=== PATIENT | male | born 2000 | race Caucasian/White ===

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

== ENCOUNTER → 2021-10-26 21:56 | Outpatient (CLI) | payer BC, SELFPAY | PROVIDERS: PCP Internal Medicine Adolescent Medicine; Visit Provider Emergency Medicine | DX: U07.1 COVID-19 (principal) | CPT/HCPCS: C9803; U0003; U0005 ==

== ENCOUNTER 2022-01-27 19:23 | Emergency (ER) | payer BC, SELFPAY ==
--- NOTE | 2022-01-27 19:30 | XR_ITS ---
PROCEDURE INFORMATION: Exam: XR Right Tibia and Fibula Exam date and time: 01/27/2022 7:27 PM Age: 21 years old Clinical indication: Pain; Lower leg; Right; Prior surgery; Surgery date: 6+ months TECHNIQUE: Imaging protocol: XR Right tibia and fibula. Views: 2 views. COMPARISON: CR TIBIART XR tibia fibula RT 2V 06/02/2018 11:01 PM FINDINGS: Bones/joints: Chronic, healed fracture of the proximal fibular diaphysis. There is also a chronic, healed distal fibular fracture with hardware fixation. Thin lucency around the syndesmotic screw, as better seen on ankle series. No acute fracture. No dislocation. Soft tissues: Normal. IMPRESSION: 1. No acute fracture. 2. Chronic, healed fibula fractures, with distal fixation.
--- NOTE | 2022-01-27 19:30 | XR_ITS ---
PROCEDURE INFORMATION: Exam: XR Right Foot Exam date and time: 01/27/2022 7:30 PM Age: 21 years old Clinical indication: Pain; Foot; Right; Prior surgery TECHNIQUE: Imaging protocol: XR Right foot. Views: 3 or more views. COMPARISON: CR XR ANKLE RT MIN 3V 01/27/2022 7:29 PM FINDINGS: Bones/joints: Partially visualized remote distal fibula fracture with hardware fixation. Thin lucency around the trans-syndesmotic screw. Healed posterior malleolus fracture. Chronic/corticated ossific body is seen near the dorsal margin of the metatarsal bases. No acute fracture. No dislocation. Soft tissues: Normal. IMPRESSION: 1. No acute fracture. 2. Chronic fractures with hardware fixation of the distal fibula.
--- NOTE | 2022-01-27 19:30 | XR_ITS ---
PROCEDURE INFORMATION: Exam: XR Right Ankle Exam date and time: 01/27/2022 7:29 PM Age: 21 years old Clinical indication: Pain; Ankle; Right; Prior surgery; Surgery date: 6+ months TECHNIQUE: Imaging protocol: XR Right ankle. Views: 3 or more views. COMPARISON: CR ANKCMRT XR ankle RT min 3V 06/02/2018 10:50 PM FINDINGS: Bones/joints: Chronic, healed distal fibula fracture transfixed by a lateral plate and screws, with trans-syndesmotic screw. There is a thin 1 mm lucency surrounding the syndesmotic screw. There also appears to be slight buckling/undulation of the screw, without subha screw fracture. Irregularity of the posterior malleolus suggesting remote, healed fracture as well. No acute fracture. Ankle mortise is symmetric. No joint space erosion. Soft tissues: Normal. IMPRESSION: 1. No acute fracture. 2. Remote, transfixed distal fibula fracture. Thin lucency around the trans-syndesmotic screw suggesting micromotion.
[2022-01-27 19:56] VITALS: BP 163/88; PULSE 73; RESP 20; TEMP 36.7; O2SAT 98; BMI 27.1
--- NOTE | 2022-01-27 20:28 | HMH.EDUTC ---
[facility] – [place] Disposition Clinical Impression: Right leg pain Right ankle pain Qualifiers: Chronicity: acute Qualified Code(s): M25.571 - Pain in right ankle and joints of right foot Contusion of right ankle Qualifiers: Encounter type: initial encounter Qualified Code(s): S90.01XA - Contusion of right ankle, initial encounter Disposition: Home, Self-Care Condition on Discharge: Good Instructions: Contusion, DI for Contusion, DI for Ankle Pain Additional Instructions: Rest the extremity, Wear the gwen wrap for compression, Elevate the extremity as tolerated while you are resting. Take ibuprofen for pain. I sent in a prescription to your pharmacy. Follow up with your orthopedics. With your history and the presence of the hardware in the ankle it would be advised to follow up with your orthopedic doctor to have everything rechecked. Follow up with your regular doctor. GO TO THE ER FOR ANY WORSENING SYMPTOMS Prescriptions: Ibuprofen [Ibuprofen 800mg Tablet] 800 mg PO Q8HP PRN #30 tab PRN Reason: Moderate Pain Transmission Status: Received by [facility] Referrals: Provider,Referral, [Primary Care Provider] - Forms: Work/School Release Time of Disposition: 20:56 Medical Decision Making - Medical Records Medical records reviewed: No: I reviewed the patient's medical records. - Pasquale Inquiry Pt receiving controlled substance: No Vital Signs: 01/27/22 19:56 01/27/22 21:02 Temperature 98.0 F 98 F Temperature Source Oral Pulse Rate 73 Pulse Rate [Left] 73 Respiratory Rate 20 20 Blood Pressure 163/88 H Blood Pressure [Right Arm] 163/88 H Blood Pressure Mean [Right Arm] 113 02 Sat by Pulse Oximetry 98 [facility] [place] HPI - General Stated complaint: ao02/24 PAIN rIGHT ANKLE Time Seen by Provider: 01/27/22 20:28 Mode of Arrival: Ambulatory Source of Information: Patient Limitations: No Limitations Description of Symptoms (Recalled from Triage Doc. by RN): pt states that he has had a previous football injury and has metal plate and seven screws in his R leg. he states that when he bears weight or rotates his leg it hurts. HEENT Symptoms (Recalled from RN notes): No Resp Symptoms (Recalled from RN notes): No Skin Symptoms (Recalled from RN notes): No MS Symptoms (Recalled from RN notes): Yes Functional Status (Recalled from RN notes): wnl - History of Present Illness Provider Complaint: He bumped his right ankle on his equipment trailer 3 days ago. Since then he has right ankle pain that is worse when he walks or bears weight. At time the pain radiates up to his knee. He has a history of fracturing the fibula on that side 3 years ago. He had to have surgery to place screws and a randa to repair the fracture then. Since then he has had no problems until he bumped his ankle 3 days ago. - Related Data Previous Rx's Medication Instructions Recorded Ibuprofen [Ibuprofen 800mg 800 mg PO Q8HP PRN #30 tab 01/27/22 Tablet] Allergies Allergy/AdvReac Type Severity Reaction Status Date / Time No Known Drug Allergies Allergy Unknown Verified 01/27/22 20:00 [NO KNOWN DRUG ALLERGIES] - Worker's Comp Is this a Worker's Comp case?: No Is this an [employer] Worker's Comp?: No Is this a [place] Worker's Comp?: No [facility] History - Hepatitis A Screen Attestation statement:: This patient has been screened for Hepatitis A risk factors. I have reviewed the patient's past medical history: Yes Other Surgeries: Yes: Other Comment: right ankle-7 screws and plate placed 2017 - Social History Smoking Status: Never smoker Alcohol Intake: never Occupational Status: student Housing: house Household Members: family Family Hx:: Diabetes ROS Obtained: Yes All systems reviewed & no additional complaints - Constitutional Constitutional: Denies chills, Denies fever(s) - Eyes Eyes: Denies eye discharge - ENT Ears, Nose, Mouth, and Throat: Denies dizziness, Denies otalgia, Denies so
[2022-01-27 21:02] VITALS: BP 163/88; PULSE 73; RESP 20; TEMP 36.6
== END 2022-01-27 21:03 | disposition home or self-care (01) ==
PROVIDERS: Emergency Provider Nurse Practitioner Family
DX: M25.571 Pain in right ankle and joints of right foot (principal); S90.01XA Contusion of right ankle, initial encounter; Z79.1 Long term (current) use of non-steroidal anti-inflammatories (NSAID); W22.8XXA Striking against or struck by other objects, initial encounter
CPT/HCPCS: 73590; 73610; 73630; 99213; G0463

== ENCOUNTER 2024-04-06 18:13 | Emergency (ER) | payer MEDICAID, SELFPAY ==
[2024-04-06 18:14] VITALS: BP 167/92; PULSE 83; RESP 18; TEMP 36.6; O2SAT 97; BMI 29.8
[2024-04-06] MEDS: TET/DIPHTH/PERT-ADULT 0.5ML SYRINGE 0.5 ML IM (18:34)
[2024-04-06 18:44] VITALS: BP 169/101; PULSE 90; RESP 16; O2SAT 99
--- NOTE | 2024-04-06 19:14 | HMH.EDGENADL ---
Discharge Plan Disposition Patient Disposition: Home, Self-Care Prescriptions Prescriptions: No Action ibuprofen 800 MG tablet 800 mg PO Q8HP PRN (Reason: Moderate Pain) Qty: 30 0RF Referrals Follow up/Referrals: Provider,Referral, MD [Primary Care Provider] - See instructions Activity Restrictions/Add. Instructions Additional Instructions/Restrictions: Stitches come out in 7 to 10 days. You can go to the emergency department triage area or family doctor to have them removed. Call your family doctor to establish care for this visit to the emergency department and schedule follow-up within 48 hours to ensure improvement. If you have any worsening of your condition or any other concerning signs or symptoms, return to the emergency department or your primary care doctor for further evaluation. Clinical Impressions Clinical Impression: Laceration of thumb Instructions Patient Instructions: DI for Laceration Repair Discharge ED Provider: Fercho Smith General Adult HPI General Chief complaint: Wound/Laceration Stated complaint: AO 04/06, left hand lac Time Seen by Provider: 04/06/24 18:27 Mode of Arrival: Ambulatory Source of Information: Patient Limitations: No Limitations Description of Symptoms (Recalled from ER Triage Doc. 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 Consequentially, this preceding description of symptoms, which may include the patient's categorized chief complaint in the EMR, do not reflect my personal clinical impression, and the ultimate description of history of present illness and patient stated complaints should be deferred to this section of the note. Unless stated otherwise or congruent with this section of the note, additional signs, symptoms, or incongruence should be interpreted as inaccurate with my clinical impression. Related Data Previous Rx's Medication Instructions Recorded ibuprofen 800 mg tablet 800 mg PO Q8HP PRN Moderate Pain 01/27/22 #30 tabs Allergies Allergy/AdvReac Type Severity Reaction Status Date / Time No Known Drug Allergies Allergy Unknown Verified 01/27/22 20:00 [NO KNOWN DRUG ALLERGIES] [facility] Disclaimer: The information contained in this section may have been updated after the patient was seen, as this information can be updated by other users. Social History Smoking Status: Current every day smoker alcohol intake: never current occupational status: student Travel in the last 8 weeks: None household members: family housing: house ROS Obtained: Yes All systems reviewed & no additional complaints except as documented Physical Exam General General appearance: alert and in no apparent distress Head Head exam: atraumatic and normocephalic Eye Eye exam: Present normal appearance, PERRL and EOMI ENT ENT exam: Present mucous membranes moist Neck Neck exam: Present normal inspection, full ROM and trachea midline Respiratory Respiratory exam: Absent respiratory distress, wheezes, stridor, accessory muscle use or prolonged expiratory phase Cardiovascular Cardiovascular exam: Present normal rhythm Abdominal Exam Abdominal exam: Present soft; Absent distention, tenderness, guarding, rebound or rigidity Extremities Exam Extremities exam: Present other (Centimeter laceration posterior aspect of left arm. Neurovascular intact, range of motion intact); Absent edema Neurological Exam Neurological exam: Present alert, oriented X3, CN II-XII intact and normal gait; Absent motor sensory deficit Skin Skin exam: Present warm and dry; Absent diaphoresis or erythema Medical Decision Making Medical Records Medical records reviewed: Yes I reviewed the patient's medical records. Pasquale Inquiry Pt receiving controlled substance: No Pasquale was queried for this patient: No Vital Signs: 04/06/24 18:14 04/06/24 18:44 Temperature 97.9 F Temperature Source Oral Pulse Rate 90 Pulse Rate [Left Radial] 83 Respiratory Rate 18 16 Blood Pressure 169/101 H Blood Pressure [Right Arm] 167/92 H Blood Pressure Mean [Right Arm] 117 Blood Pressure Source [Right Arm] Automatic Cuff Blood Pressure Position [Right Arm] Sitting 02 Sat by Pulse Oximetry 97 99 Oxygen Delivery Method Room Air Orders (Tests/Meds): ED MEDICATIONS Discontinued Medications Generic Name Dose Route Start Last Admin Trade Name Freq PRN Reason Stop Dose Admin Lidocaine HCl 20 ml 04/06/24 19:07 04/06/24 19:17 Lidocaine 1% 20ml Mdv SQ 04/06/24 19:08 20 ml ONCE ONE Administration Tetanus/Reduced Diphtheria/Acell Pertussis 0.5 ml 04/06/24 18:26 04/06/24 18:34 Tet/Diphth/Pert-Adult 0.5ml Syringe IM 07/05/24 18:27 0.5 ml .ONCE ONE Administration Medical Decision Narrative: 24-year-old male presenting with thumb laceration. 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 Came in for further evaluation given its across the joint. Not up-to-date on tetanus, that was given today. History obtained with patient. On arrival, patient hemodynamically stable. He does have a 1 cm laceration over the back of his left thumb. Neurovascularly intact is overlying the MCP. No gross contamination. Range of motion is intact as well. X-rays considered, but not deemed necessary. New blade and clean. Tetanus updated. Numbed with lidocaine, closed with sutures. Because patient at baseline without signs or symptoms of clinical decompensation, deemed appropriate for discharge. Results were relayed to patient who voiced understanding and were agreeable to outpatient management and follow up. I discussed my clinical impression with patient and answered all questions. At this time, the evidence for any other entities in the differential is insufficient to warrant any further testing or ED observation. This was explained as well. Advisory was given that persistent or worsening symptoms require further evaluation. I confirmed the understanding of this discussion. Interior Mechanic disclaimer Much of this encounter note is an electronic information systems security specialist spoken language to printed text. Electronic information systems security specialist of the spoken language may permit errors. Although I have reviewed the note, some errors may still exist. Procedures Laceration Laceration 1: Site: thumb Side (If applicable): left Size (cm): 1 Description: linear and irregular Depth: involves subcutaneous layer Local Anesthetic: lidocaine 1% Amount of anesthesia used (mL): 5 Pre-repair: wound explored and irrigated extensively Skin layer closed with: nylon Size (cm): 3-0 Number of sutures: 4 Critical Care Critical Care Time Critical Care Time: No
[2024-04-06] MEDS: LIDOCAINE 1% 20ML MDV 20 ML SQ (19:17)
[2024-04-06 20:16] VITALS: BP 154/75; PULSE 77; RESP 18; TEMP 36.6; O2SAT 99
== END 2024-04-06 20:16 | disposition home or self-care (01) ==
PROVIDERS: Emergency Provider Emergency Medicine
DX: S61.012A Laceration without foreign body of left thumb without damage to nail, initial encounter (principal); W26.8XXA Contact with other sharp object(s), not elsewhere classified, initial encounter; Z23 Encounter for immunization
CPT/HCPCS: 12001; 90471; 90715; 99283